=== PATIENT | female | born 1990 | race Caucasian/White ===

== ENCOUNTER 2023-08-09 12:00 | Outpatient (CLI) | payer BC, SELFPAY | END 2023-08-09 12:01 | disposition home or self-care (01) | LOC: NFLDREF 08-10 02:07 | PROVIDERS: Visit Provider Nurse Practitioner Family | DX: R30.0 Dysuria (principal); N30.00 Acute cystitis without hematuria | CPT/HCPCS: 87086 ==

== ENCOUNTER 2024-10-12 12:47 | Outpatient (CLI) | payer BC, SELFPAY | END 2024-10-12 12:48 | disposition home or self-care (01) | PROVIDERS: Visit Provider Physician Assistant | DX: R10.11 Right upper quadrant pain (principal) | CPT/HCPCS: 80076; 83690 ==

== ENCOUNTER 2024-10-19 14:47 | Outpatient (CLI) | payer BC, SELFPAY | END 2024-10-19 14:48 | disposition home or self-care (01) | PROVIDERS: Visit Provider Physician Assistant Medical | DX: R10.11 Right upper quadrant pain (principal); Z11.59 Encounter for screening for other viral diseases; Z11.4 Encounter for screening for human immunodeficiency virus [HIV] | CPT/HCPCS: 80076; 86703; 86803 ==